=== PATIENT | female | born 1965 | race Caucasian/White ===

== ENCOUNTER → 2018-04-04 14:05 | Outpatient (CLI) | payer OTHER, SELFPAY ==
--- NOTE | 2018-04-04 14:08 | DI.US.S_ITS ---
PROCEDURE: US PELVIC COMPLETE INDICATIONS: RIGHT LOWER QUADRANT PAIN TECHNIQUE: Real-time scanning was performed of the pelvic organs, with image documentation. Additional endovaginal scanning was necessary due to incomplete visualization of the adnexal and endometrial structures by transabdominal scanning. COMPARISON: [facility], US, US PELVIC COMPLETE, 01/15/2018, 13:35. FINDINGS: Transabdominal scanning: Limited scanning through the kidneys shows no hydronephrosis. No pathologic free abdominal or pelvic fluid. Endovaginal scanning: Uterus: Uterus is normal in size at 5.0 x 5.6 x 8.2 cm, retroverted. The endometrium measures 3.0 mm in combined thickness. A 5 x 5 by 8mm anterior midline intramural fibroid is incidentally noted. Ovaries: The right ovary measures 2.0 x 1.4 x 2.9 cm and the left measures 2.0 x 1.9 x 2.5 cm IMPRESSION: No endometrial lesion found, no ovarian lesion present. Incidental note is made of a 5 x 5 x 8 mm midline anterior intramural fibroid. Dictated by: Ovidio Vidal M.D. on 04/04/2018 at 15:09 Approved by: Ovidio Vidal M.D. on 04/04/2018 at 15:11
== END ==
PROVIDERS: PCP Family Medicine; Visit Provider Obstetrics & Gynecology
DX: D25.1 Intramural leiomyoma of uterus (principal); R10.31 Right lower quadrant pain
CPT/HCPCS: 76830; 76856

== ENCOUNTER → 2018-07-23 15:00 | Outpatient (CLI) | payer OTHER, SELFPAY | PROVIDERS: PCP Family Medicine | DX: Z23 Encounter for immunization (principal) | CPT/HCPCS: 90471; 90686 ==

== ENCOUNTER → 2019-01-28 11:22 | Outpatient (CLI) | payer OTHER, SELFPAY ==
--- NOTE | 2019-01-28 | DI.MG.S_ITS ---
BILATERAL DIGITAL SCREENING MAMMOGRAM 3D/2D WITH CAD: 01/28/2019 CLINICAL: Routine screening. Family history of breast cancer. Comparison is made to exams dated: 01/10/2018 mammogram, 12/16/2016 mammogram, and 06/11/2017 mammogram - [facility]. The tissue of both breasts is heterogeneously dense. This may lower the sensitivity of mammography. Current study was also evaluated with a Computer Aided Detection (CAD) system. There are benign calcifications in the right breast. There also is a benign biopsy clip in the right breast. No significant masses, calcifications, or other findings are seen in either breast. There has been no significant interval change. IMPRESSION: There is no mammographic evidence of malignancy. A 1 year screening mammogram is recommended. This exam was interpreted at Station ID: [id number]. NOTE: For mammograms, a report in lay terms will be sent to the patient. Approximately 15% of breast malignancies will not be visualized mammographically. In the management of a palpable breast mass, a negative mammogram must not discourage biopsy of a clinically suspicious lesion. Electronically Signed By: Terry menon/velma:01/28/2019 13:08:59 letter sent: Normal Exam ACR BI-RADS Category 2: Benign Finding(s) 3342F
== END ==
PROVIDERS: PCP Internal Medicine; Visit Provider Internal Medicine
DX: Z12.31 Encounter for screening mammogram for malignant neoplasm of breast (principal); Z80.3 Family history of malignant neoplasm of breast
CPT/HCPCS: 77063; 77067

== ENCOUNTER → 2019-07-15 17:00 | Outpatient (CLI) | payer OTHER, SELFPAY | PROVIDERS: PCP Internal Medicine | DX: Z23 Encounter for immunization (principal) | CPT/HCPCS: 90471; 90686 ==

== ENCOUNTER → 2020-01-16 07:11 | Outpatient (CLI) | payer OTHER, SELFPAY ==
--- NOTE | 2020-01-16 | DI.US.S_ITS ---
PROCEDURE: US ABDOMEN COMPLETE INDICATIONS: LLQ PAIN TECHNIQUE: Real-time scanning was performed of the abdominal and retroperitoneal organs, with image documentation. COMPARISON: None. FINDINGS: Liver: Liver is normal in size and homogeneous in echotexture. Gallbladder: Surgically absent Biliary ducts: Intrahepatic bile ducts are non-dilated. Extrahepatic bile duct caliber measures 3.2 mm. Normal is 6-7 mm or less in diameter, or 10 mm or less post-cholecystectomy. Pancreas: Visualized portions of the pancreas are sonographically normal. Spleen: Spleen is normal in size and homogeneous in echotexture. Kidneys: Kidneys are normal in size and echotexture. Right kidney measures 10.8 cm long; left kidney measures 9.1 cm long. No hydronephrosis or nephrolithiasis. No solid masses. Aorta: Visualized aorta is normal in caliber at less than 3 cm. Iliacs: Proximal common iliac arteries are normal in caliber at less than 2.5 cm. IVC: Intrahepatic inferior vena cava is patent. Miscellaneous: No free abdominal fluid. IMPRESSION: Prior cholecystectomy. Dictated by: Ovidio Vidal M.D. on 01/16/2020 at 9:44 Approved by: Ovidio Vidal M.D. on 01/16/2020 at 9:45
--- NOTE | 2020-01-16 | DI.US.S_ITS ---
PROCEDURE: US PELVIC COMPLETE INDICATIONS: LEFT LOWER QUADRANT PAIN TECHNIQUE: Real-time scanning was performed of the pelvic organs, with image documentation. Additional endovaginal scanning was necessary due to incomplete visualization of the adnexal and endometrial structures by transabdominal scanning. COMPARISON: [facility], , US PELVIC COMPLETE, 04/04/2018, 14:23. FINDINGS: Transabdominal scanning: Limited scanning through the kidneys shows no hydronephrosis. No pathologic free abdominal or pelvic fluid. Endovaginal scanning: Uterus: Uterus is normal in size at 7.3 x 4.4 x 4.6 cm. The endometrium measures 6.4 mm in combined thickness. No endometrial mass or fluid is seen. No discrete uterine fibroid. Ovaries: Right ovary measures 2.0 x 1.8 x 1.1 cm in size. Left ovary measures 2.1 x 1 x 1.4 cm in size. No gross solid-appearing ovarian lesion. Normal blood flow is seen in bilateral ovaries on color Doppler images. IMPRESSION: Unremarkable ultrasound examination of uterus and bilateral ovaries. Dictated by: Brant Sifuentes M.D. on 01/16/2020 at 8:49 Approved by: Brant Sifuentes M.D. on 01/16/2020 at 8:50
== END ==
PROVIDERS: PCP Internal Medicine; Referring Provider Internal Medicine; Visit Provider Internal Medicine
DX: R10.32 Left lower quadrant pain (principal); Z90.49 Acquired absence of other specified parts of digestive tract
CPT/HCPCS: 76700; 76830; 76856

== ENCOUNTER → 2020-05-18 16:05 | Outpatient (CLI) | payer OTHER, SELFPAY ==
--- NOTE | 2020-05-18 16:09 | DI.MG.S_ITS ---
BILATERAL DIGITAL SCREENING MAMMOGRAM 3D/2D WITH CAD: 05/18/2020 CLINICAL: Routine screening. Family history of breast cancer. Comparison is made to exams dated: 01/28/2019 mammogram - [facility], 01/10/2018 mammogram, and 06/11/2017 mammogram - [facility]. The tissue of both breasts is heterogeneously dense. This may lower the sensitivity of mammography. Current study was also evaluated with a Computer Aided Detection (CAD) system. There are benign calcifications in the right breast. There also is a biopsy clip in the right breast. No significant masses, calcifications, or other findings are seen in either breast. There has been no significant interval change. IMPRESSION: BENIGN There is no mammographic evidence of malignancy. A 1 year screening mammogram is recommended. This exam was interpreted at Station ID: [id number]. NOTE: For mammograms, a report in lay terms will be sent to the patient. Approximately 15% of breast malignancies will not be visualized mammographically. In the management of a palpable breast mass, a negative mammogram must not discourage biopsy of a clinically suspicious lesion. Electronically Signed By: Terry menon/velma:05/18/2020 19:25:00 letter sent: Normal Exam ACR BI-RADS Category 2: Benign Finding(s) 3342F
== END ==
PROVIDERS: PCP Internal Medicine; Referring Provider Internal Medicine; Visit Provider Internal Medicine
DX: Z12.31 Encounter for screening mammogram for malignant neoplasm of breast (principal); Z80.3 Family history of malignant neoplasm of breast
CPT/HCPCS: 77063; 77067

== ENCOUNTER 2020-06-09 20:56 | Emergency (ER) | payer OTHER, SELFPAY ==
[2020-06-09 21:04] VITALS: BP 176/90; PULSE 96; RESP 16; TEMP 36.8; O2SAT 96; BMI 35.0
--- NOTE | 2020-06-09 21:12 | ED.GENADULT ---
HPI - General Adult General Chief complaint: Dental/Oral Stated complaint: swollen lip after steroid injection Time Seen by Provider: 06/09/20 21:03 Source: patient Mode of arrival: Ambulatory Limitations: no limitations History of Present Illness HPI narrative: Patient is an otherwise healthy 55-year-old female who was at the construction coordinator late this afternoon and received a steroid injection into a cyst on the right side of her upper lip. He states that shortly afterward she started noticing swelling in the upper lip and as the evening went on it did involve her entire upper lip. She has no other symptoms associated with this. No problems breathing. No problems swallowing. Tongue not involved. She did take a Benadryl at home prior to arrival without much improvement. Related Data Previous Rx's Medication Instructions Recorded citalopram 20 mg PO QAM #30 tab 11/03/17 cyclobenzaprine 5 mg PO TIDP PRN #30 tab 11/03/17 lisinopril 20 mg PO QDAY #30 tab 11/03/17 phentermine 15 mg PO QDAY #30 cap 11/03/17 hydrocodone 5 mg-acetaminophen 325 1 tab PO Q4H PRN #20 tab 01/15/18 mg tablet estradiol 1 mg tablet 1 mg PO DAILY #30 tab 05/21/18 methylprednisolone 4 mg tablets in See Rx Instructions PO PER PKG DIR 07/02/18 a dose pack #21 each norethindrone acetate 1.5 1 tab PO Q DAY #3 packet 07/31/18 mg-ethinyl estradiol 30 mcg tablet lidocaine 5 % topical ointment 1 applictn TOP BID-QID PRN #50 gram 11/12/18 zolpidem 10 mg tablet See Rx Instructions .ROUTE 05/27/20 .COMPLEX #30 tab prednisone 20 mg PO DAILY 3 Days #3 tab 06/09/20 Allergies Allergy/AdvReac Type Severity Reaction Status Date / Time No Known Allergies Allergy Uncoded 04/22/18 14:09 Review of Systems Constitutional Constitutional: Denies fever(s) and Denies headache(s) ENT Ears, Nose, Mouth, and Throat: Denies headache(s), Denies sore throat, Denies throat swelling and Denies tongue swelling Comments: Upper lip swelling Cardiovascular Cardiovascular: Denies dyspnea Respiratory Respiratory: Denies cough and Denies dyspnea Gastrointestinal Gastrointestinal: Denies nausea and Denies vomiting Integumentary/Breasts Skin/Breast: Denies lesions and Denies rash Neurologic Neurologic: Denies behavioral changes and Denies headache(s) Psychiatric Psychiatric: Denies behavioral changes Hematologic/Lymphatic Hematologic/Lymphatic: Denies easy bleeding and Denies easy bruising Allergic/Immunologic Allergic/Immunologic: Denies throat swelling and Denies tongue swelling Patient History Medical History Depression (11/03/17) Essential hypertension (11/03/17) Insomnia (11/03/17) Obesity with body mass index (BMI) of 35.0 to 39.9 without comorbidity (11/03/17) Surgical History (Updated 12/26/17 @ 06:14 by Conversion Provider) Status post delivery Status post cholecystectomy Family History (Updated 11/03/17 @ 00:00 by Conversion Provider) Brother Age: 67 Colon cancer Grandfather Stroke Social History Smoking Status: Never smoker Smoking Status: Never smoker Exam Initial Vital Signs Initial Vital Signs: Vital Signs Temperature 98.3 F 06/09/20 21:04 Pulse Rate 96 H 06/09/20 21:04 Respiratory Rate 16 06/09/20 21:04 Blood Pressure 176/90 H 06/09/20 21:04 Pulse Oximetry 96 06/09/20 21:04 Const General: cooperative, healthy appearing, comfortable and well developed Limitations: mental status not altered [facility] Head: normal to inspection and normocephalic Ears: hearing grossly normal bilaterally Nose: external nose normal Face and sinus: no edema and no lacerations Mouth: oral mucosae normal, No lip normal, moist mucous membranes, No drooling and lip abnormal (Swollen upper lip) Teeth and gingiva: dentition normal Throat: posterior oropharynx normal Resp Effort & Inspection: normal respiratory effort Auscultation: clear to auscultation bilaterally Skin Lesions: no lesions Rashes: no rashes Neuro General: patient alert and patient awake Cognition: normal cognition Extrem General: normal to inspection and capillary refill normal Psych Appearance: grossly normal and well kempt Course Vital Signs Vital signs: Vital Signs - 8 hr 06/09/20 21:04 Temperature 98.3 F Pulse Rate 96 H Respiratory Rate 16 Blood Pressure 176/90 H Pulse Oximetry 96 Medical Decision Making MDM Narrative Medical decision making narrative: Patient does have bilateral upper lip swelling most likely from the injection she received earlier this evening however there is no redness. No other oral mucous membranes are involved. She has no other signs of anaphylaxis. Is not in any respiratory distress. Cellulitis is unlikely given the fact that she just received the injection a few hours ago. I feel that putting an IV and giving her steroids and more medications here in the emergency department 1 unlikely be helpful as this is most likely not a histamine reaction given the fact that was steroids that they put in with the injection. Currently her airway is not compromised. Patient is on lisinopril and there is a possibility that the injection in her upper lip is a coincidence and potentially the lip swelling is secondary to the lisinopril however I feel given her presentation that is most likely related to the injection. Will send home with a prescription for prednisone however she was instructed that she should hold on taking this medication unless her symptoms worsen. She was given strict return precautions with related to the swelling. Informed she should contact her construction coordinator tomorrow for follow-up. She expressed understanding and agreement. 06/10/20 @ 1850: Eye contact the patient this evening to see how she was doing and she stated that the upper lip swelling has almost completely resolved. I did discuss with her the potential that lisinopril in the cause given the fact that it was very closely related to the steroid injection that she had yesterday and that it has completely resolved today I do think that it is not injury edema related to lisinopril and is related to the steroid injection. Pain did inform her that if her symptoms worsened or came back that she needed to return to the emergency department. She expressed understanding and agreement. Discharge Plan Departure Patient Disposition: Home Clinical Impression: Swollen upper lip Discharge Date/Time: 06/09/20 21:18 Activity Restrictions/Additional Instructions: You can continue to take the Benadryl like we discussed. I recommend that tomorrow you contact the provider who use saw today who did the injection to let them know that you had this reaction. If your symptoms worsen overnight please return to the emergency department. You were given a prescription for a short course of some steroids. This is if your symptoms are not to the point the you need to return to the emergency department but are not necessarily improving over the next 24 hours. Prescriptions: New prednisone 20 mg tablet 20 mg PO DAILY 3 Days Qty: 3 RF: 0 No Action lisinopril 20 MG tablet 20 mg PO QDAY Qty: 30 RF: 5 citalopram 20 MG tablet 20 mg PO QAM Qty: 30 RF: 5 cyclobenzaprine 5 MG tablet 5 mg PO TIDP PRNQty: 30 RF: 0 phentermine 15 MG capsule 15 mg PO QDAY Qty: 30 RF: 0 estradiol 1 mg tablet 1 mg PO DAILY Qty: 30 RF: 11 methylprednisolone [Medrol (Nasir)] 4 mg tablets,dose pack See Rx Instructions PO PER PKG DIR Qty: 21 RF: 0 norethindrone ac-eth estradiol [Microgestin 1.5 ()] 1.5-30 mg-mcg tablet 1 tab PO Q DAY Qty: 3 RF: 1 lidocaine 5 % ointment 1 applictn TOP BID-QID PRN (Reason: pain) Qty: 50 RF: 0 zolpidem 10 mg tablet See Rx Instructions .ROUTE .COMPLEX Qty: 30 RF: 0 hydrocodone-acetaminophen [Swanzey] 5-325 mg tablet 1 tab PO Q4H PRN (Reason: right ovarian cyst ) Qty: 20 RF: 0 Referrals: Yumiko Vance ARNP [Primary Care Provider] -
== END 2020-06-09 21:18 | disposition home or self-care (01) ==
PROVIDERS: Emergency Provider Emergency Medicine; PCP Internal Medicine
DX: R22.0 Localized swelling, mass and lump, head (principal)
CPT/HCPCS: 99281

== ENCOUNTER → 2020-06-18 04:21 | Outpatient (CLI) | payer OTHER, SELFPAY | PROVIDERS: PCP Internal Medicine; Referring Provider Internal Medicine; Visit Provider Internal Medicine | DX: Z23 Encounter for immunization (principal) | CPT/HCPCS: 90471; 90686 ==

== ENCOUNTER → 2020-07-10 11:12 | Outpatient (CLI) | payer OTHER, SELFPAY ==
--- NOTE | 2020-07-10 11:14 | DI.US.S_ITS ---
PROCEDURE: US PELVIC COMPLETE INDICATIONS: dysmenorrhea TECHNIQUE: Real-time scanning was performed of the pelvic organs, with image documentation. Additional endovaginal scanning was necessary due to incomplete visualization of the adnexal and endometrial structures by transabdominal scanning. COMPARISON: [facility], , PELVIC COMPLETE, 01/16/2020, 7:47. FINDINGS: Transabdominal scanning: Limited scanning through the kidneys shows no hydronephrosis. No pathologic free abdominal or pelvic fluid. Endovaginal scanning: Uterus: Uterus is normal in size at 8.6 x 6.1 x 5.6 cm. The endometrium measures 9-10 mm in combined thickness. Nonspecific heterogeneous appearance of the myometrium. Ovaries: Right ovary measures 5.2 x 2.2 x 2.4 cm. The left ovary measures 2.6 x 1.3 x 1.4 cm. Ovaries are grossly unremarkable. Doppler interrogation demonstrates expected waveforms within both ovaries. IMPRESSION: Unremarkable examination as above Dictated by: Link Wallace M.D. on 07/10/2020 at 14:07 Approved by: Link Wallace M.D. on 07/10/2020 at 14:09
== END ==
PROVIDERS: PCP Internal Medicine; Referring Provider Internal Medicine; Visit Provider Obstetrics & Gynecology
DX: N94.6 Dysmenorrhea, unspecified (principal)
CPT/HCPCS: 76830; 76856

== ENCOUNTER → 2020-07-17 12:56 | Outpatient (CLI) | payer OTHER, SELFPAY ==
[2020-07-17 13:41] LABS: COVID19 -Nasal RAPID Negative (Negative)
== END ==
PROVIDERS: PCP Internal Medicine; Visit Provider Specialist
DX: Z03.818 Encounter for observation for suspected exposure to other biological agents ruled out (principal)
CPT/HCPCS: 87635

== ENCOUNTER 2020-07-20 10:05 | Day surgery (SDC) | payer OTHER, SELFPAY ==
[2020-07-17 12:41] VITALS: BMI 35.6
[2020-07-20] VITALS (8 sets, daily range): BP systolic 121–146; BP diastolic 64–88; PULSE 61–84; RESP 11–24; TEMP 36.7–37.2; O2SAT 95–98; BMI 35.0
--- NOTE | 2020-07-20 | PATH_ITS ---
[facility] Accession Number: [id number] . 01 Material submitted: . endometrium - ENDOMETRIAL CURETTINGS . 02 Diagnosis: Endometrial Curettings: Portions of weakly proliferative endometrium with patchy regions of stromal breakdown and features of shedding; negative for glandular hyperplasia, cytologic atypia, or malignancy. Some endometrial fragments demonstrate prominent vessels, suggestive of polyp, if clinical and imaging studies are concordant. . MRV 07/22/2020 1413 Local . 02 Electronically signed: . Hanny Olivo MD, Pathologist NPI- [id number] . 01 Gross description: . ENDOMETRIAL CURETTINGS: Received in formalin are multiple fragment(s) of lennon, soft tissue measuring 2.5 x 2.0 x 0.4 cm in aggregate submitted entirely in 1 cassette(s) /QBJ 07/21/2020 0704 Local . 02 Pathologist provided ICD-10: N92.1 . 02 CPT . 444889 Performed at: 01 [facility] [address], [place], [place] [id number] MD Hans Wetzel MD Phone: [phone] Performed at: 02 [facility] [address] [place], [place] [id number] MD Gay Lauren MD Phone: [phone]
[2020-07-20] MEDS: LACTATED RINGERS 1,000 ML 100 ML IV (10:25)
--- NOTE | 2020-07-20 11:30 | PM.HP.1 ---
History of Present Illness History of Present Illness Date Patient Seen: 07/20/20 Time Patient Seen: 11:30 Chief complaint: SDC Narrative: Patient is a 55-year-old 4 para 2 who presents for a D&C hysteroscopy with NovaSure endometrial ablation secondary to abnormal uterine bleeding with a normal ultrasound. Patient History Medical History (Updated 07/12/20 @ 10:31 by Rosina Gutierrez MD) Depression (11/03/17) Essential hypertension (11/03/17) Insomnia (11/03/17) Obesity with body mass index (BMI) of 35.0 to 39.9 without comorbidity (11/03/17) Surgical History (Updated 12/26/17 @ 06:14 by Conversion Provider) Status post delivery Status post cholecystectomy Family & Social History Family History (Updated 11/03/17 @ 00:00 by Conversion Provider) Brother Age: 67 Colon cancer Grandfather Stroke Social History: household members spouse Tobacco & Substance use: Smoking Status Former smoker alcohol intake current alcohol intake frequency a few times a week Substance Use Type does not use Meds Home Medications and Allergies Home Medications Medication Instructions Recorded Confirmed Type citalopram 20 mg PO QAM #30 tab 11/03/17 07/20/20 Rx lisinopril 20 mg PO QDAY #30 tab 11/03/17 07/20/20 Rx zolpidem 10 mg tablet See Rx Instructions .ROUTE 06/23/20 07/20/20 Rx .COMPLEX #30 tab Allergies Allergy/AdvReac Type Severity Reaction Status Date / Time No Known Allergies Allergy Uncoded 07/10/20 12:09 Exam Vital Signs (past 8 hours): - 07/20/20 10:28 Temperature 98.9 F Pulse Rate 84 Respiratory Rate 16 Blood Pressure 142/88 H Pulse Oximetry 95 Oxygen Delivery Method Room Air Narrative Exam Narrative: HEENT: No thyromegaly, no anterior cervical or supraclavicular lymphadenopathy. Lungs:Clear to auscultation bilaterally, no wheezes. Cardiovascular: Regular rate and rhythm, no murmurs, rubs, or gallops. Abdomen: Multiple well-healed right upper quadrant and Pfannenstiel scars. No hepatosplenomegaly. No masses palpable. External genitalia: Normal Vagina: Normal Cervix: Normal Bimanual exam: 8 Week size uterus. Mobile. Rectal: No masses. Assessment & Plan Assessment & Plan narrative: Assessment: 55-year-old 4 para 2 with abnormal uterine bleeding, and a normal ultrasound Plan: D&C hysteroscopy with NovaSure endometrial ablation The risks, benefits, and alternatives to the procedure were explained to the patient. The risks including bleeding, infection, and uterine perforation. She understands these risks and agrees to proceed. A full par Q was held and consent form was signed. COVID-19 COVID-19 status: Negative Result date/Date tested (Pos, Neg/Pending): 07/17/20 Time Spent With Patient Time with patient: 15-24 minutes
--- NOTE | 2020-07-20 11:32 | SUR.OPER ---
Lithotomy on padded OR bed. Reddell Pad Positioner under torso. Head on pillow, arms padded and tucked at sides. Legs secured in padded yellow fins stirrups.
--- NOTE | 2020-07-20 11:33 | PM.PREOP ---
Pre-operative Note COVID-19 COVID-19 status: Negative Result date/Date tested (Pos, Neg/Pending): 07/17/20 Interval Note History & Physical reviewed/Exam performed by Physician: Yes Changes to H&P: No H&P completed within 30 days and has changed as indicated here:: 07/20/20
--- NOTE | 2020-07-20 12:13 | PM.GYNOP.1 ---
Operative Date/Time/Diagnoses Date of procedure: 07/20/20 Time of procedure: 12:14 Pre-op diagnosis: Abnormal uterine bleeding Normal pelvic ultrasound Post-op diagnosis: same Procedure & Clinicians Procedure: Procedures Operation Date: 07/20/20 11:30 Actual Procedures Side Surgeon p Hysteroscopy D&C w/ Novasure Ablation Rosina Gutierrez MD Indications: Abnormal uterine bleeding Normal pelvic ultrasound Surgeon: Rosina Gutierrez Anesthesia Type: General (LMA) Operative Notes Findings: Eight week size anteverted uterus Both fallopian tube ostia observed No polyps or fibroids Closure Type: not applicable Specimen(s): endometrial curettings Estimated blood loss (mL): 10 Blood products transfused: none Procedure in detail: After informed consent was obtained, the patient was taken to the operating room where she was placed in the dorsal supine position. After adequate LMA general anesthesia was achieved, she was placed in the dorsal lithotomy position, and prepped and draped in the usual sterile fashion. A time-out was performed. A bivalve speculum was placed into the vagina and the anterior lip of the cervix was grasped with a single-tooth tenaculum. The cervical os was sequentially dilated until the hysteroscope could pass easily into the endometrial cavity. This was to the # 8 Hegar dilator. Initial inspection with the hysteroscope revealed both fallopian tube ostia. There was a small clot in the uterus. No polyps or fibroids were observed. The hysteroscope was removed. Gentle sharp curettage was performed yielding a large amount of endometrial curettings. The uterus was measured from the internal os to the fundus of the uterus and measured 6 cm. This was set on the NovaSure catheter as well as the generator. The NovaSure catheter was opened and the with of the uterus was 4.5 cm. This indicated a power of 146 w. The cervix was capped, the cavity assessment was performed and passed. The cycle was started and lasted 45 seconds. The cervix was uncapped, the NovaSure catheter was closed and removed from the uterus. The single-tooth tenaculum was removed from the anterior lip of the cervix. The bivalve speculum was removed from the vagina. Sponge, lap, and instrument counts were correct x2. The patient tolerated the procedure well, and was taken to PACU in stable condition.
[2020-07-20] MEDS: HYDROCODONE/ACET 5/325 TABLET 1 TAB PO (13:08)
--- NOTE | 2020-07-20 13:17 | SUR.PHASEI ---
Report to TAVO Manjarrez and pt transferred to phase 2 in stable condition
== END 2020-07-20 13:43 | disposition home or self-care (01) ==
PROVIDERS: PCP Internal Medicine; Referring Provider Obstetrics & Gynecology; Visit Provider Obstetrics & Gynecology
PROC: 0U5B8ZZ Destruction of Endometrium, Via Natural or Artificial Opening Endoscopic (ICD-10-PCS; CPT 58563; principal; 2020-07-20 11:30)
DX: N92.1 Excessive and frequent menstruation with irregular cycle (principal); I10 Essential (primary) hypertension; F32.9 Major depressive disorder, single episode, unspecified; G47.00 Insomnia, unspecified; E66.9 Obesity, unspecified; Z68.35 Body mass index [BMI] 35.0-35.9, adult
CPT/HCPCS: 58563; J1100; J1885; J2250; J2405; J2704; J3010

== ENCOUNTER 2020-08-25 18:09 | Emergency (ER) | payer OTHER, SELFPAY ==
[2020-08-25 18:28] VITALS: BP 165/76; PULSE 76; RESP 16; TEMP 36.7; O2SAT 98; BMI 35.0
--- NOTE | 2020-08-25 19:32 | ED.ANIMALBIT ---
HPI - Animal Bite General Chief Complaint: Animal Bite Stated Complaint: Cat Bite, Left Arm Time Seen by Provider: 08/25/20 19:13 Source: patient Mode of arrival: Ambulatory Limitations: no limitations History of Present Illness HPI narrative: Patient is a 55-year-old female here for evaluation of redness to her left forearm. States that a couple days ago she was scratched/bit by her house can not. Saw her primary doctor put her on antibiotics. Patient has had 2 days worth of antibiotics however she continues to worsening symptoms. No joint pain. Related Data Previous Rx's Medication Instructions Recorded citalopram 20 mg PO QAM #30 tab 11/03/17 lisinopril 20 mg PO QDAY #30 tab 11/03/17 zolpidem 10 mg tablet See Rx Instructions .ROUTE 07/28/20 .COMPLEX #30 tab doxycycline hyclate 100 mg PO BID 7 Days #14 tab 08/25/20 Allergies Allergy/AdvReac Type Severity Reaction Status Date / Time No Known Drug Allergies Allergy Verified 08/04/20 15:57 Review of Systems Constitutional Constitutional: Denies fever(s) Musculoskeletal Musculoskeletal: Denies tingling Comments: Left elbow or wrist pain Integumentary/Breasts Comments: Swelling/redness to left forearm Neurologic Neurologic: Denies tingling Hematologic/Lymphatic Hematologic/Lymphatic: Denies easy bleeding and Denies easy bruising Patient History Medical History Depression (11/03/17) Essential hypertension (11/03/17) Insomnia (11/03/17) Obesity with body mass index (BMI) of 35.0 to 39.9 without comorbidity (11/03/17) Surgical History (Updated 12/26/17 @ 06:14 by Conversion Provider) Status post delivery Status post cholecystectomy Family History (Updated 11/03/17 @ 00:00 by Conversion Provider) Brother Age: 67 Colon cancer Grandfather Stroke Social History household members: spouse Smoking Status: Former smoker alcohol intake: current Smoking Status: Former smoker alcohol intake frequency: a few times a week Substance Use Type: does not use Exam Initial Vital Signs Initial Vital Signs: Vital Signs Temperature 98.1 F 08/25/20 18:28 Pulse Rate 76 08/25/20 18:28 Respiratory Rate 16 08/25/20 18:28 Blood Pressure 165/76 H 08/25/20 18:28 Pulse Oximetry 98 08/25/20 18:28 Cardio Pulses: radial pulses present on the left Skin Other: Patient with a large area of redness encompassing the proximal 1/3 of the left forearm. It does not extend into the elbow or proximal the elbow. Does not extend to the left wrist. Extrem Other: Full range of motion of left elbow and left wrist Course Orders Ordered: ED Orders 08/25/20 19:33 XR forearm LT 2V Stat Discontinued Medications Doxycycline Hyclate (Doxycycline Hyclate 100 Mg Tablet) 100 mg PO NOW ONE Stop: 08/25/20 19:34 Last Admin: 08/25/20 19:50 Dose: 100 mg Documented by: JOSE Vital Signs Vital signs: Vital Signs - 8 hr 08/25/20 18:28 08/25/20 20:31 Temperature 98.1 F Pulse Rate 76 76 Respiratory Rate 16 20 Blood Pressure 165/76 H 157/90 H Pulse Oximetry 98 96 MDM - Animal Bite Imaging Data Extremity x-ray #1: Radiologist's Impression: [address] [id number] ReportSigned Patient: Lisset Pastor LMR#: [id number]: 1965Acct:[id number]/Sex: 55 / FDate of Service: 08/25/20Loc: EDAccession Number: [id number] Procedure: XR forearm LT 2V Ordering Provider: Howard Ayon D.O. PROCEDURE: XR FOREARM RT 2V INDICATIONS: cat bite eval for FB TECHNIQUE: 2 views of the forearm were acquired. COMPARISON: None. FINDINGS: Bones: No fractures or dislocations. No suspicious bony lesions. No radiopaque foreign body identified. Soft tissues: Soft tissue swelling. IMPRESSION: No radiopaque foreign body seen Dictated by: Link Wallace M.D. on 08/25/2020 at 19:54 Approved by: Link Wallace M.D. on 08/25/2020 at 19:55 [facility] Narrative Medical decision making narrative: Patient is nontoxic appearing. There are no radiopaque foreign bodies on the x-ray. Does have a large area cellulitis to her left forearm. No signs of an abscess. She has been on antibiotics for the past couple days. She states the symptoms have been worsening despite these antibiotics. This could potentially be that she does has not been on the antibiotics long enough our they patient states the redness and the swelling and the pain seems to be worsening despite these. Secondary to these symptoms I will switch her to doxycycline. Patient thinks that she is currently taking Augmentin. The area of redness was outlined with a marking pen. She was given return precautions and follow-up instructions. She expressed understanding and agreement. Discharge Plan Departure Patient Disposition: Home Clinical Impression: Bite by animal, Cellulitis Instructions: DI for Cellulitis -- Adult, DI for Cat Bite Activity Restrictions/Additional Instructions: A prescription for antibiotics was electronically transmitted to [facility]. Take it as directed. Contact your primary provider for follow-up. Return to the emergency department for any new or worsening symptoms. Prescriptions: New doxycycline hyclate 100 mg tablet 100 mg PO BID 7 Days Qty: 14 RF: 0 No Action lisinopril 20 MG tablet 20 mg PO QDAY Qty: 30 RF: 5 citalopram 20 MG tablet 20 mg PO QAM Qty: 30 RF: 5 zolpidem 10 mg tablet See Rx Instructions .ROUTE .COMPLEX Qty: 30 RF: 2 Referrals: Yumiko Vance ARNP [Primary Care Provider] -
[2020-08-25] MEDS: DOXYCYCLINE HYCLATE 100 MG TABLET PO (19:50)
[2020-08-25 20:31] VITALS: BP 157/90; PULSE 76; RESP 20; O2SAT 96
== END 2020-08-25 20:35 | disposition home or self-care (01) ==
PROVIDERS: Emergency Provider Emergency Medicine; PCP Internal Medicine
DX: L03.113 Cellulitis of right upper limb (principal); W55.01XA Bitten by cat, initial encounter
CPT/HCPCS: 73090; 99281; 99283

== ENCOUNTER → 2020-09-03 10:08 | Outpatient (CLI) | payer OTHER, SELFPAY ==
[2020-09-03] MEDS: COVID-19 VACC(MODERNA-1)/PF 100 MCG/0.5 ML VIAL IM (10:12)
== END ==
PROVIDERS: PCP Internal Medicine; Visit Provider Internal Medicine
DX: Z23 Encounter for immunization (principal)
CPT/HCPCS: 0011A; 91301

== ENCOUNTER → 2020-09-30 09:56 | Outpatient (CLI) | payer OTHER, SELFPAY ==
[2020-09-30] MEDS: COVID-19 VACC #2, MRNA(MOD) 100 MCG/0.5 ML VIAL IM (10:01)
== END ==
PROVIDERS: PCP Internal Medicine; Visit Provider Internal Medicine
DX: Z23 Encounter for immunization (principal)
CPT/HCPCS: 0012A; 91301

== ENCOUNTER → 2021-06-02 10:33 | Outpatient (CLI) | payer OTHER, SELFPAY ==
[2021-06-02 11:19] LABS: COVID19 -Nasal RAPID Negative (Negative)
== END ==
PROVIDERS: PCP Internal Medicine; Referring Provider Specialist; Visit Provider Specialist
DX: Z20.822 Contact with and (suspected) exposure to COVID-19 (principal); Z01.812 Encounter for preprocedural laboratory examination
CPT/HCPCS: 87635; C9803

== ENCOUNTER 2021-06-03 06:45 | Day surgery (SDC) | payer OTHER, SELFPAY ==
[2021-06-03] VITALS (8 sets, daily range): BP systolic 114–154; BP diastolic 75–96; PULSE 67–75; RESP 16–18; TEMP 36.3–36.9; O2SAT 93–97; BMI 36.0
--- NOTE | 2021-06-03 | PATH_ITS ---
[facility] Accession Number: [id number] . 01 Material submitted: . PART A: gastrointestinal site - GASTRIC POLYP PART B: esophagus - DISTAL ESOPHAGUS . 02 Diagnosis: A. Stomach, Polyp, Biopsy: Fundic gland polyp. No evidence of Helicobacter organisms on H/E stain. Negative for intestinal metaplasia. Negative for dysplasia and malignancy. . B. Distal Esophagus, Biopsy: Squamocolumnar junctional mucosa with no diagnostic abnormality. Negative for intestinal metaplasia. Negative for dysplasia and malignancy. . MRV 06/07/2021 1207 Local . 02 Electronically signed: . Gay Lauren MD, Pathologist NPI- [id number] . 01 Gross description: . Part A: GASTRIC POLYP: Received in formalin is 1 fragment(s) of lennon, soft tissue measuring 0.3 x 0.2 x 0.2 cm submitted entirely in 1 cassette(s) Part B: DISTAL ESOPHAGUS: Received in formalin are 4 fragment(s) of lennon, soft tissue measuring 0.4 x 0.2 x 0.1 cm to 0.3 x 0.2 x 0.1 cm submitted entirely in 1 cassette(s) /KIARA 06/04/2021 0427 Local . 02 Pathologist provided ICD-10: K21.9 . 02 CPT . 834706, [id number] Performed at: 01 [facility] [address] [place] [address], [place], [place] [id number] MD Hans Wetzel MD Phone: [phone] Performed at: 02 [facility] [address] [place], [place] [id number] MD Gay Lauren MD Phone: [phone]
[2021-06-03] MEDS: LACTATED RINGERS 1,000 ML 84 ML IV (07:16)
--- NOTE | 2021-06-03 07:54 | PM.PREOP ---
Pre-operative Note COVID-19 COVID-19 status: Negative Result date/Date tested (Pos, Neg/Pending): 06/02/21 Interval Note History & Physical reviewed/Exam performed by Physician: Yes Changes to H&P: No ASA Class (for procedural sedation): II
[2021-06-03] MEDS: LIDOCAINE 4% SOLN 50 ML 20 ML TOP (08:00)
[2021-06-03] MEDS: fentaNYL 250 MCG/5 ML INJ IV (08:05)
[2021-06-03] MEDS: MIDAZOLAM 5 MG/5 ML VIAL IV (08:07)
--- NOTE | 2021-06-03 08:16 | PM.OP.EGD ---
Operative Date/Time/Diagnoses Date of procedure: 06/03/21 Time of procedure: 08:16 Pre-op diagnosis: Severe epigastric pain and reflux. Post lap band procedure Post-op diagnosis: same (Mild inflammation of the distal esophagus. Single gastric polyp noted and biopsied.) Procedure & Clinicians Study performed: EGD with cold biopsy Same procedure as scheduled: Yes Indications: Recent onset of severe burning pain and reflux symptoms. Concerned about the lap band location. Surgeon: Aston Bautista Procedure Notes SCOAP/Timeout: Performed Procedure in detail: The patient had topical anesthetic applied to oropharynx. She was placed in the left lateral decubitus position and underwent IV sedation directed by the surgeon consisting of fentanyl and Versed. A bite block was inserted and the scope was advanced through it into the esophagus. The esophagus was unremarkable. GE junction was noted at 40 cm from the incisors. There was a small cavity of stomach followed by a a significant narrowing and then emptying into larger remainder part of the stomach. This is presumably the location of the lap band. The stomach insufflated well. There were no lesions seen in the body, antrum or at the incisura. The pyloric channel was narrowed but patent. The duodenum was unremarkable to the 4th part. Scope was brought back into the stomach and retroflexed. The proximal stomach was remarkable for 1 polyp which I biopsied. It is probably a gastric fundic polyp the remainder of the proximal stomach was normal. The band appears to be snug. The scope was straightened and brought out through the esophagus again. No abnormalities were noted in the small proximal gastric pouch. The distal esophagus was biopsied. The scope was removed and the patient tolerated the procedure well. Findings: other findings (Possible esophagitis. Lap band in place. Gastric polyp.) Specimen(s): other (Polyp and biopsies of the distal esophagus) Complications: none Post-procedure Recommendations: Continue medication(s) Plan for aftercare: Try to eat about 4 hours before going to bed. Consider taking a dose of antacid shortly before going to bed. This may help you sleep through the night without chest pain. Follow up: as needed (By phone) Disposition: PACU
--- NOTE | 2021-06-03 08:45 | SUR.PHASEII ---
pt to be discharged with her friend. pt had cup of juice. Denies any complaints. Pt given discharge instructions and states she understands them.
== END 2021-06-03 08:49 | disposition home or self-care (01) ==
PROVIDERS: PCP Internal Medicine; Referring Provider Specialist; Visit Provider Specialist
PROC: 0DJ08ZZ Inspection of Upper Intestinal Tract, Via Natural or Artificial Opening Endoscopic (ICD-10-PCS; CPT 43235; principal; 2021-06-03 07:45)
DX: R10.13 Epigastric pain (principal); K21.9 Gastro-esophageal reflux disease without esophagitis; Z98.890 Other specified postprocedural states; I10 Essential (primary) hypertension; E66.9 Obesity, unspecified; Z68.36 Body mass index [BMI] 36.0-36.9, adult; K31.7 Polyp of stomach and duodenum
CPT/HCPCS: 43239; J2250; J3010

== ENCOUNTER → 2021-06-17 16:45 | Outpatient (CLI) | payer OTHER, SELFPAY ==
--- NOTE | 2021-06-17 | DI.MG.S_ITS ---
BILATERAL DIGITAL SCREENING MAMMOGRAM 3D/2D WITH CAD: 06/17/2021 CLINICAL: Routine screening. Family history of breast cancer. Comparison is made to exams dated: 05/18/2020 mammogram, 01/28/2019 mammogram - [facility], and 01/10/2018 mammogram - [facility]. The tissue of both breasts is heterogeneously dense. This may lower the sensitivity of mammography. Current study was also evaluated with a Computer Aided Detection (CAD) system. There is a biopsy clip in the right breast. No significant masses, calcifications, or other findings are seen in either breast. There has been no significant interval change. IMPRESSION: NEGATIVE There is no mammographic evidence of malignancy. A 1 year screening mammogram is recommended. This exam was interpreted at Station ID: [id number]. NOTE: For mammograms, a report in lay terms will be sent to the patient. Approximately 15% of breast malignancies will not be visualized mammographically. In the management of a palpable breast mass, a negative mammogram must not discourage biopsy of a clinically suspicious lesion. Electronically Signed By: Brian torres/velma:06/18/2021 08:11:38 letter sent: Normal Exam ACR BI-RADS Category 1: Negative 3341F
== END ==
PROVIDERS: PCP Internal Medicine; Referring Provider Internal Medicine; Visit Provider Internal Medicine
DX: Z12.31 Encounter for screening mammogram for malignant neoplasm of breast (principal); Z80.3 Family history of malignant neoplasm of breast
CPT/HCPCS: 77063; 77067

== ENCOUNTER → 2021-09-11 07:20 | Outpatient (CLI) | payer OTHER, SELFPAY ==
[2021-09-11 08:58] LABS: COVID19 -Nasal RAPID Negative (Negative)
== END ==
PROVIDERS: PCP Internal Medicine; Referring Provider Nurse Practitioner Family; Visit Provider Nurse Practitioner Family
DX: Z20.822 Contact with and (suspected) exposure to COVID-19 (principal)
CPT/HCPCS: 87635

== ENCOUNTER → 2022-06-20 10:59 | Outpatient (CLI) | payer OTHER, SELFPAY ==
--- NOTE | 2022-06-20 | DI.MG.S_ITS ---
BILATERAL DIGITAL SCREENING MAMMOGRAM 3D/2D WITH CAD: 06/20/2022 CLINICAL: Routine screening. Comparison is made to exams dated: 06/17/2021 mammogram, 05/18/2020 mammogram, and 01/28/2019 mammogram - [facility]. Both breasts are heterogeneously dense, which may obscure small masses (category c / 51-75% glandular tissue). Current study was also evaluated with a Computer Aided Detection (CAD) system. There is a biopsy clip in the right breast. No significant masses, calcifications, or other findings are seen in either breast. There has been no significant interval change. IMPRESSION: NEGATIVE There is no mammographic evidence of malignancy. A 1 year screening mammogram is recommended. Based on the Tyrer Cuzick model (a risk assessment model) the patient's lifetime risk is 11.1% and her 10 year risk is 3.4%. According to the ACR, ACS, and NCCN guidelines, an annual breast MRI exam along with mammogram is recommended if the patient's lifetime risk is 20% or greater. This exam was interpreted at Station ID: [id number]. NOTE: For mammograms, a report in lay terms will be sent to the patient. Approximately 15% of breast malignancies will not be visualized mammographically. In the management of a palpable breast mass, a negative mammogram must not discourage biopsy of a clinically suspicious lesion. Electronically Signed By: Terry menon/velma:06/20/2022 12:58:38 letter sent: Normal Exam ACR BI-RADS Category 1: Negative 3341F
== END ==
PROVIDERS: PCP Internal Medicine; Referring Provider Internal Medicine; Visit Provider Internal Medicine
DX: Z12.31 Encounter for screening mammogram for malignant neoplasm of breast (principal)
CPT/HCPCS: 77063; 77067

== ENCOUNTER → 2023-06-22 16:56 | Outpatient (CLI) | payer OTHER, SELFPAY ==
--- NOTE | 2023-06-22 | DI.MG.S_ITS ---
BILATERAL DIGITAL SCREENING MAMMOGRAM 3D/2D WITH CAD: 06/22/2023 CLINICAL: Routine screening. Family history of breast cancer. Comparison is made to exams dated: 06/20/2022 mammogram, 06/17/2021 mammogram, and 05/18/2020 mammogram - [facility]. Both breasts are heterogeneously dense, which may obscure small masses (category c / 51-75% glandular tissue). Current study was also evaluated with a Computer Aided Detection (CAD) system. There is a biopsy clip in the right breast. No significant masses, calcifications, or other findings are seen in either breast. There has been no significant interval change. IMPRESSION: NEGATIVE There is no mammographic evidence of malignancy. A 1 year screening mammogram is recommended. Based on the Tyrer Cuzick model (a risk assessment model) the patient's lifetime risk is 11.1% and her 10 year risk is 3.6%. According to the ACR, ACS, and NCCN guidelines, an annual breast MRI exam along with mammogram is recommended if the patient's lifetime risk is 20% or greater. This exam was interpreted at Station ID: [id number]. NOTE: For mammograms, a report in lay terms will be sent to the patient. Approximately 15% of breast malignancies will not be visualized mammographically. In the management of a palpable breast mass, a negative mammogram must not discourage biopsy of a clinically suspicious lesion. Electronically Signed By: Terry menon/velma:06/23/2023 07:24:10 letter sent: Normal Exam ACR BI-RADS Category 1: Negative 3341F
== END ==
PROVIDERS: PCP Internal Medicine; Referring Provider Internal Medicine; Visit Provider Internal Medicine
DX: Z12.31 Encounter for screening mammogram for malignant neoplasm of breast (principal); Z80.3 Family history of malignant neoplasm of breast
CPT/HCPCS: 77063; 77067

== ENCOUNTER → 2024-06-24 09:52 | Outpatient (CLI) | payer BC, SELFPAY ==
--- NOTE | 2024-06-24 09:54 | DI.MG.S_ITS ---
BILATERAL DIGITAL SCREENING MAMMOGRAM 3D/2D WITH CAD: 06/24/2024 CLINICAL: Routine screening. Family history of breast cancer. Comparison is made to exams dated: 06/22/2023 mammogram, 06/20/2022 mammogram, and 06/17/2021 mammogram - [facility]. The breasts are heterogeneously dense, which may obscure small masses (category c / 51-75% glandular tissue). Current study was also evaluated with a Computer Aided Detection (CAD) system. There is an asymmetry in the left breast posterior depth lateral region seen on the craniocaudal view only. This is more prominent. There also is an asymmetry in the left breast middle depth inferior region seen on the mediolateral oblique view only. This is more prominent. No other significant masses, calcifications, or other findings are seen in either breast. IMPRESSION: INCOMPLETE: NEED ADDITIONAL IMAGING EVALUATION The asymmetry in the left breast posterior depth lateral region seen on the craniocaudal view only resembles a lymph node and is indeterminate. Additional views with possible ultrasound are recommended. The asymmetry in the left breast middle depth inferior region seen on the mediolateral oblique view only is indeterminate. Additional views with possible ultrasound are recommended. Based on the Tyrer Cuzick model (a risk assessment model) the patient's lifetime risk is 18.2% and her 10 year risk is 6.5%. According to the ACR, ACS, and NCCN guidelines, an annual breast MRI exam along with mammogram is recommended if the patient's lifetime risk is 20% or greater. This exam was interpreted at Station ID: [id number]. NOTE: For mammograms, a report in lay terms will be sent to the patient. Approximately 15% of breast malignancies will not be visualized mammographically. In the management of a palpable breast mass, a negative mammogram must not discourage biopsy of a clinically suspicious lesion. Electronically Signed By: Dominick delgado/velma:06/24/2024 14:17:39 letter sent: Additional Imaging Needed ACR BI-RADS Category 0: Incomplete: Need Additional Imaging Evaluation
== END ==
PROVIDERS: PCP Family Medicine; Referring Provider Family Medicine; Visit Provider Family Medicine
DX: Z12.31 Encounter for screening mammogram for malignant neoplasm of breast (principal); Z80.3 Family history of malignant neoplasm of breast; R92.333 Mammographic heterogeneous density, bilateral breasts
CPT/HCPCS: 77063; 77067

== ENCOUNTER → 2024-07-15 09:31 | Outpatient (CLI) | payer BC, SELFPAY ==
--- NOTE | 2024-07-15 09:33 | DI.US.S_ITS ---
LIMITED ULTRASOUND OF LEFT BREAST AND AXILLA: 07/15/2024 CLINICAL: Patient returns today to evaluate a focal asymmetry in the left breast. Comparison is made to exams dated: 07/15/2024 mammogram, 06/24/2024 mammogram, 06/22/2023 mammogram, 06/20/2022 mammogram, 06/17/2021 mammogram, and 05/18/2020 mammogram - [facility]. Color flow and real-time ultrasound of the left breast 3 o'clock, 9 o'clock, and axilla regions were performed. Weaver scale images of the real-time examination were reviewed. There is a 1 cm x 0.4 cm x 0.3 cm wider than tall normal lymph node in the left breast at 3 o'clock posterior depth 13 cm from the nipple. This normal lymph node displays fatty hilum. This correlates with mammography findings. There also is a 0.7 cm x 0.4 cm x 0.6 cm wider than tall oval cyst in the left breast at 9 o'clock middle depth 6 cm from the nipple. This oval cyst is anechoic with a well-defined boundary. This correlates with mammography findings. Color flow imaging demonstrates that there is no vascularity present. IMPRESSION: BENIGN There is no sonographic evidence of malignancy. The 1 cm x 0.4 cm x 0.3 cm wider than tall normal lymph node in the left breast at 3 o'clock posterior depth is benign. The 0.7 cm x 0.4 cm x 0.6 cm wider than tall oval cyst in the left breast at 9 o'clock middle depth is consistent with a simple cyst and is benign. A 1 year screening mammogram is recommended. Findings and recommendations were conveyed to the patient during today's evaluation. This exam was interpreted at Station ID: [id number]. Electronically Signed By: Terry Breaux M.D. aty/:07/15/2024 13:00:10 letter sent: Normal Exam ACR BI-RADS Category 2: Benign
--- NOTE | 2024-07-15 09:33 | DI.MG.S_ITS ---
UNILATERAL LEFT DIGITAL DIAGNOSTIC MAMMOGRAM 3D/2D WITH ADDITIONAL VIEWS: 07/15/2024 CLINICAL: Additional evaluation requested from prior study. Comparison is made to exams dated: 06/24/2024 mammogram, 06/22/2023 mammogram, and 06/20/2022 mammogram - [facility]. The breasts are heterogeneously dense, which may obscure small masses (category c / 51-75% glandular tissue). There is a 0.5 cm asymmetry in the left breast posterior depth lateral region seen on the craniocaudal view only. This is seen in additional views. This is more prominent. There also is a 0.7 cm oval asymmetry in the left breast middle depth inferior region seen on the mediolateral oblique view only. This is more prominent. No other significant masses or calcifications are seen in the breast. IMPRESSION: INCOMPLETE: NEED ADDITIONAL IMAGING EVALUATION The 0.5 cm asymmetry in the left breast posterior depth lateral region seen on the craniocaudal view only resembles a cyst or a lymph node and is indeterminate. An ultrasound is recommended for further evaluation and is scheduled to immediately follow this examination. The 0.7 cm oval asymmetry in the left breast middle depth inferior region seen on the mediolateral oblique view only resembles a cyst or a lymph node and is indeterminate. An ultrasound is recommended for further evaluation and is scheduled to immediately follow this examination. Based on the Tyrer Cuzick model (a risk assessment model) the patient's lifetime risk is 18.2% and her 10 year risk is 6.5%. According to the ACR, ACS, and NCCN guidelines, an annual breast MRI exam along with mammogram is recommended if the patient's lifetime risk is 20% or greater. This exam was interpreted at Station ID: [id number]. NOTE: For mammograms, a report in lay terms will be sent to the patient. Approximately 15% of breast malignancies will not be visualized mammographically. In the management of a palpable breast mass, a negative mammogram must not discourage biopsy of a clinically suspicious lesion. Electronically Signed By: Terry Breaux M.D. aty/:07/15/2024 10:43:34 letter sent: Comparison Films Needed ACR BI-RADS Category 0: Incomplete: Need Additional Imaging Evaluation
== END ==
PROVIDERS: PCP Family Medicine; Referring Provider Family Medicine; Visit Provider Family Medicine
DX: R92.8 Other abnormal and inconclusive findings on diagnostic imaging of breast (principal); R92.333 Mammographic heterogeneous density, bilateral breasts; N60.02 Solitary cyst of left breast
CPT/HCPCS: 76642; 77065; G0279

== ENCOUNTER → 2025-07-28 15:48 | Outpatient (CLI) | payer BC, SELFPAY ==
--- NOTE | 2025-07-28 15:50 | DI.MG.S_ITS ---
MM screening mammo BI: 07/28/2025. BI-RADS: 2 CLINICAL: 60-year old female for bilateral screening mammogram. Tyrer-Cuzick lifetime risk of 14.5%. Current reported family history of breast cancer: sister. The patient had a prior right breast biopsy. PRIOR EXAMS 07/15/2024, 06/24/2024, 06/22/2023, 06/20/2022, MAMMOGRAPHY TECHNIQUE: 2D and 3D (tomosynthesis) digital mammographic views obtained, with additional images as needed for full coverage. Current study was also evaluated with a Computer Aided Detection (CAD) system. DENSITY B. There are scattered areas of fibroglandular density. MAMMOGRAPHY FINDINGS Right: Biopsy marker present on the right. There are no suspicious masses, calcifications, or other findings in the breast. No significant change from comparison. Left: No suspicious mass, asymmetry, microcalcification, or other abnormality seen. No significant change from comparison. IMPRESSION: Right * No evidence of malignancy with benign findings. Left * No evidence of malignancy. RECOMMENDATIONS Bilateral * Annual screening mammography. OVERALL ASSESSMENT CATEGORY BI-RADS-2: Benign. The [employer] recommends annual screening mammography beginning at age 40 for women with average risk of breast cancer. ELECTRONICALLY SIGNED: Jade Sexton M.D. on 07/29/2025 at 12:32:50 PM PT Interpreting Station ID: [id number]
== END ==
LOC: MAMMO 15:49
PROVIDERS: PCP Family Medicine; Referring Provider Family Medicine; Visit Provider Family Medicine
DX: Z12.31 Encounter for screening mammogram for malignant neoplasm of breast (principal); Z80.3 Family history of malignant neoplasm of breast
CPT/HCPCS: 77063; 77067